=== PATIENT | female | born 2000 | race Caucasian/White ===

== ENCOUNTER 2022-04-02 17:23 | Outpatient (CLI) | payer OTHER | END 2022-04-02 23:59 | disposition EMS.NT | LOC: EMS 17:23 | DX: R50.9 Fever, unspecified (principal) ==

== ENCOUNTER 2023-05-16 19:39 | Emergency (ER) | payer OTHER ==
[2023-05-16 19:59] VITALS: O2SAT 100
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
--- NOTE | 2023-05-17 01:36 | CT Report ---
PROCEDURE: CERVICAL SPINE WO INDICATIONS: neck injury, pain/tenderness TECHNIQUE: Noncontrast 3 mm thick sections acquired from the skull base to the T4 level. Sagittal and coronal r eformats were then constructed. For radiation dose reduction, the following was used: automated exp osure control, adjustment of mA and/or kV according to patient size. COMPARISON: None. FINDINGS: Image quality: Excellent. Bones: No fractures or dislocations. Skull base is intact. There is fluid in the left mastoids. Vis ualized superior ribs are intact. Soft tissues: Prevertebral soft tissues are normal in thickness. No paravertebral hematomas. No ap ical pneumothoraces. IMPRESSION: 1. No cervical spine fracture. 2. Fluid in the left mastoids. Recommend clinical correlation for mastoiditis. Reviewed by: Alise Andino MD on 05/17/2023 1:35 AM PST Approved by: Alise Andino MD on 05/17/2023 1:35 AM [facility] Station ID: [id number]
--- NOTE | 2023-05-17 01:38 | CT Report ---
PROCEDURE: LUMBAR SPINE WO INDICATIONS: injury, pain/tenderness TECHNIQUE: Noncontrast 3 mm thick sections acquired from the T12 level to the sacrum. Sagittal and coronal refo rmats were constructed. For radiation dose reduction, the following was used: automated exposure co ntrol, adjustment of mA and/or kV according to patient size. COMPARISON: None. FINDINGS: Image quality: Excellent. Bones: There is normal bony alignment. No acute vertebral body compression fractures. No suspiciou s lytic or blastic bony lesions. Central spinal caliber is of normal overall caliber. No pars defec ts. T12-L1: Normal in appearance. L1-L2: Normal in appearance. L2-L3: Normal in appearance. L3-L4: Normal in appearance. L4-L5: Normal in appearance. L5-S1: Normal in appearance. Soft tissues: No retroperitoneal masses or hematomas. Visualized aorta is normal in caliber. IMPRESSION: 1. No acute osseous abnormality. Reviewed by: Alise Andino MD on 05/17/2023 1:37 AM PST Approved by: Alise Andino MD on 05/17/2023 1:37 AM PST Station ID: [id number]
[2023-05-17 02:01] VITALS: BP 140/87
== END 2023-05-17 01:53 | disposition home or self-care (01) ==
LOC: ED 19:39
DX: S16.1XXA Strain of muscle, fascia and tendon at neck level, initial encounter (principal); S39.012A Strain of muscle, fascia and tendon of lower back, initial encounter; Y33.XXXA Other specified events, undetermined intent, initial encounter; Y99.0 Civilian activity done for income or pay
CPT/HCPCS: 1040M; 72125; 72131; 99283; 99284